=== PATIENT | female | born 1985 | race African-American/Black ===

== ENCOUNTER 2021-07-27 18:07 | Emergency (ER) | payer SELFPAY ==
[~2021-07-27] VITALS: Ht 154.9 cm; Wt 104.5 kg
[~2021-07-27 18:07] MED LIST: CEPHALEXIN500 M1 PO; DIFLUCAN200 MG PO; NEXPLANON68 MG ID
[2021-07-27 18:37] VITALS: TEMP 99.2
[2021-07-27 18:55] LABS: BASO % 0.8 % (0.0-2.0); EOS # 0.2 K/mm3 (0.0-0.7); EOS % 4.5 % (0.0-4.0); GRAN # 1.9 K/mm3 (1.4-6.5); GRAN % 37.6 % (42.2-75.2); HEMOGLOBIN 12.5 g/dl (12.5-16.0); LYMPH # 2.5 K/mm3 (1.2-3.4); MEAN CELL VOLUME 96 fl (80.0-100.0); MEAN CORPUSCULAR HEMOGLOBIN 32 pg (27-31); MEAN CORPUSCULAR HGB CONC 34 g/dl (33.0-37.0); MONO # 0.4 K/mm3 (0.1-0.6); MONO % 6.9 % (1.7-9.3); PLATELET COUNT 303 K/mm3 (130-400); RED BLOOD COUNT 3.86 M/mm3 (4.10-5.30); REDCELL DISTRIBUTION WIDTH-CV 12.3 % (11.5-14.5)
[2021-07-27 18:59] LABS: COLLECTION METHOD CLEAN CATCH
[2021-07-27 19:08] LABS: MUCOUS Present (NOT PRESENT); PH 7 (5-8); SQUAMOUS EPITHELIAL 20-50 /hpf (0-10); URINE APPEARANCE Cloudy (CLEAR/HAZY); URINE BACTERIA None Seen /hpf (NONE SEEN); URINE BILIRUBIN Negative (NEGATIVE); URINE BLOOD Negative (NEGATIVE); URINE COLOR Yellow (YELLOW); URINE GLUCOSE Negative (NEGATIVE); URINE KETONE Negative (NEGATIVE); URINE LEUKOCYTE ESTERASE Negative (NEGATIVE); URINE NITRATE Negative (NEGATIVE); URINE PROTEIN(semi-quant) Negative (NEGATIVE); URINE RBC 0-2 /hpf (0-2)
[2021-07-27 19:13] LABS: ALANINE AMINOTRANSFERASE 14 U/L (0-55); ALBUMIN 3.9 gm/dL (3.5-5.0); ALKALINE PHOSPHATASE 91 U/L (40-150); ANION GAP 8 mmol/L (7-16); AST,SGOT 16 U/L (5-34); BILIRUBIN,TOTAL 0.3 mg/dL (0.2-1.2); BLOOD UREA NITROGEN 7 mg/dL (7-19); CALCIUM 8.4 mg/dL (8.4-10.2); CARBON DIOXIDE 23 mmol/L (22-29); CHLORIDE 110 mmol/L (98-107); CREATININE, serum 0.74 mg/dL (0.57-1.11); GLUCOSE 98 mg/dL (70-99); LIPASE 22 U/L (8-78); POTASSIUM 3.7 mmol/L (3.5-4.5); SODIUM 141 mmol/L (136-145); TOTAL PROTEIN 6.9 gm/dL (6.2-8.1)
[2021-07-27 19:33] LABS: TROPONIN-I < 0.010 ng/mL (0.00-0.033)
[2021-07-27] MEDS ORDERED: NORCO 325 MG-51 TAB PO (19:54)
== END 2021-07-27 20:30 | disposition home or self-care (01) ==
LOC: COL.ER 18:07
PROVIDERS: Student in an Organized Health Care Education/Training Program
DX: S20.20XA Contusion of thorax, unspecified, initial encounter (principal); J45.909 Unspecified asthma, uncomplicated; F17.210 Nicotine dependence, cigarettes, uncomplicated; X58.XXXA Exposure to other specified factors, initial encounter
CPT/HCPCS: J1885

== ENCOUNTER 2021-08-22 21:43 | Emergency (ER) | payer SELFPAY ==
[~2021-08-22] VITALS: Ht 157.5 cm; Wt 104.5 kg
[~2021-08-22 21:43] MED LIST changes: +NORCO 325 MG-51 TAB PO
[2021-08-22 21:50] VITALS: TEMP 98.6
[2021-08-22 23:30] VITALS: BP 117/56; PULSE 95
== END 2021-08-22 23:30 | disposition home or self-care (01) ==
LOC: COL.ER 21:43
DX: U07.1 COVID-19 (principal); Z73.0 Burn-out

== ENCOUNTER 2022-09-28 15:01 | Emergency (ER) | payer MEDICAID ==
[~2022-09-28] VITALS: Ht 152.4 cm; Wt 112.7 kg
[2022-09-28 15:23] VITALS: BP 162/105; PULSE 81; TEMP 98.3
[2022-09-28 17:02] LABS: STREP SCREEN NEGATIVE
== END 2022-09-28 17:28 | disposition home or self-care (01) ==
LOC: COL.ER 15:01
PROVIDERS: Nurse Practitioner Primary Care
DX: J06.9 Acute upper respiratory infection, unspecified (principal); F17.200 Nicotine dependence, unspecified, uncomplicated; Z20.822 Contact with and (suspected) exposure to COVID-19